=== PATIENT | female | born 1940 | race Caucasian/White ===

== ENCOUNTER 2019-04-28 15:36 | Inpatient (IN) ==
[2019-04-28] MEDS ORDERED: MORPHINE IV ONE (16:30)
[2019-04-28] MEDS ORDERED: ZOFRAN IV ONE (16:30)
[2019-04-28] MEDS ORDERED: TORADOL IV ONE (16:30)
[2019-04-28] MEDS ORDERED: NS 1,000 ML IV ONE (16:30)
--- NOTE | 2019-04-28 17:19 | Diag Imaging Result Doc PS360 ---
EXAM: CT HEAD/C-SPINE W/O CONTRAST - 04/28/2019 HISTORY: head injury/pain TECHNIQUE: CT head/cervical spine without contrast COMPARISON: None. FINDINGS: CT head: There are mild atrophic changes and mild chronic appearing microvascular ischemic changes. There is no indication of recent infarct, although acute infarcts may not be immediately visible. There is no evidence of intracranial hemorrhage, mass effect, or midline shift. There is no evidence of skull fracture. CT cervical spine: There are substantial degenerative changes at atlantoaxial articulation. There are additional cervical spine degenerative changes, which most prominently involves facets on the right. There are degenerative changes with prominent posterior osteophytes and associated mild to moderate spinal stenosis at the thoracic 1-2 level. There is no fracture, subluxation, or precervical soft tissue swelling identified. IMPRESSION: CT head: No visible acute intracranial abnormality. No evidence of intracranial injury. CT cervical spine: Degenerative disease at cervical and visualized upper thoracic spine. Associated mild to moderate spinal stenosis at thoracic 1-2 level. No evidence of fracture or subluxation. This exam was performed using automated exposure control, adjustment of mA or kV according to patient size, and/or use of iterative reconstruction technique. Electronically signed by Andre Coronel 04/28/2019 5:17 PM
--- NOTE | 2019-04-28 17:19 | Diag Imaging Result Doc PS360 ---
EXAM: CT PELVIS W/O CONTRAST INDICATION: left hip fracture TECHNIQUE: This exam was performed using automated exposure control, adjustment of mA or kV according to patient size, and/or use of iterative reconstruction technique. COMPARISON: Conventional CT of the abdomen and pelvis dated 12/06/2012 FINDINGS: There is an acute intertrochanteric fracture involving the left hip with comminution and a few moderately displaced fracture fragments. No other acute fracture is identified involving the pelvis, hips, or sacrum. 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 There are degenerative changes of both hips and at the lower lumbar spine. There is soft tissue edema around the acute left hip fracture. Review of the intrapelvic structures reveals uncomplicated diverticulosis coli. IMPRESSION: 1.Acute intratrochanteric fracture of the left hip. 2.Other incidental/nonacute findings detailed above. Electronically signed by Praveen Garcia 04/28/2019 5:16 PM
--- NOTE | 2019-04-28 17:21 | Diag Imaging Result Doc PS360 ---
EXAM: XRAY PELVIS W/HIP 2-3VW LT - 04/28/2019 HISTORY: fall, injury TECHNIQUE: Left hip and pelvis three views COMPARISON: None. FINDINGS: There is an intertrochanteric fracture of the left femur, with mild varus deformity. There is no other fracture or dislocation identified. There are some osteoarthritic changes at the bilateral hips, most prominent on the left. IMPRESSION: Intertrochanteric fracture of left femur. Electronically signed by Andre Coronel 04/28/2019 5:19 PM
--- NOTE | 2019-04-28 17:52 | Diag Imaging Result Doc PS360 ---
EXAM: CHEST-PORTABLE - 04/28/2019 HISTORY: fall TECHNIQUE: Portable chest COMPARISON: None. FINDINGS: Heart size appears mildly enlarged. There is some tortuosity of the thoracic aorta. There is a possible small nodular density at the medial right base. Lungs otherwise appear clear. There is no pleural effusion or pneumothorax identified. IMPRESSION: Mild cardiomegaly. Possible small nodular density at medial right base. No other evidence of acute disease. Electronically signed by Andre Coronel 04/28/2019 5:50 PM
[2019-04-28 18:08] LABS: BASO# 0.01 X1000 (0.0-0.2); BASO% 0.1 % (0.0-0.8); EOS# 0.02 X1000 (0.0-0.7); EOS% 0.2 % (0.0-10.0); HEMATOCRIT 39.7 % (37.0-47.0); HEMOGLOBIN 13.4 g/dL (12.0-16.0); IMM GRAN# 0.03 X1000 (0.0-0.04); IMM GRAN% 0.2 % (0.0-0.5); LYMPH# 0.63 X1000 (1.2-3.4); LYMPH% 4.8 % (20.5-51.1); MCH 31.4 PG (27-31); MCHC 33.8 g/dL (33-37); MONO# 0.45 X1000 (0.11-0.59); MONO% 3.4 % (1.7-9.3); MPV 11.2 FL (7.4-10.4); NEUT# 11.99 X1000 (1.4-6.5); NEUT% 91.3 % (42.2-75.2); PLT 170 X1000 (130-400); RBC 4.27 XMIL (4.2-5.4); RDW 13.5 % (11.5-14.5); WBC 13.13 X1000 (4.8-10.8)
[2019-04-28 18:11] LABS: INR 0.91
[2019-04-28 18:12] LABS: PTT 24.4 Seconds (22.3-41.8)
--- NOTE | 2019-04-28 18:40 | PROVIDER DOCUMENTATION ---
This chart was entered by Tabatha Garcia Scribe, acting as scribe for Cosme Newton MD. 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 pt lives at [facility]. pt pcp is Dr. Suazo. pt has hx of dementia (per ems), htn and high cholesterol(has rx with her). pt arrived via [facility]. denies loc and any other injuries. Review of Systems - Adult - REVIEW OF SYSTEMS - ADULT Constitutional: reports: no symptoms reported Eyes: reports: no symptoms reported Ears, Nose, Mouth & Throat: reports: no symptoms reported Cardiovascular: reports: no symptoms reported Respiratory: reports: no symptoms reported Gastrointestinal: reports: no symptoms reported Genitourinary: reports: no symptoms reported Musculoskeletal: reports: see HPI, joint pain (left hip). denies: back pain, muscle aches, neck pain Integumentary: reports: no symptoms reported Neurological: reports: no symptoms reported Psychiatric: reports: no symptoms reported Endocrine: reports: no symptoms reported Hematologic/Lymphatic: reports: no symptoms reported Allergic/Immunologic: reports: no symptoms reported All Other Systems: Reviewed and Negative Past History - Adult - PAST MEDICAL HISTORY-ADULT Review of Records: reports: Old Records Reviewed, Nursing Assessment Review, Medications Reviewed, Social history reviewed & non-contributory. Major Childhood Illnesses: reports: denies history Cardiovascular: reports: HTN, hyperlipidemia Respiratory: reports: denies history Gastrointestinal: reports: denies history Obstetrical/Gynecological: reports: denies history Genitourinary: reports: denies history Musculoskeletal: reports: denies history Neurological: reports: dementia Endocrine/Immune: reports: denies history Other Conditions: reports: denies history - IMMUNIZATION STATUS Childhood Immunizations: See Nurse Assessment Flu Vaccine: See Nurse Assessment - FAMILY HISTORY Family History: reviewed, not pertinent Physical Exam-Injury Related - Physical Exam-Injury Related Initial Vital Signs Reviewed: Yes General Appearance: appears well, alert, no apparent distress, thin. negative: cachetic, obese, lethargic Eyes: PERRL/EOMI, pink conjunctivae Head, Ears, Nose, Mouth & Throat: normocephalic/atraumatic, moist mucous membranes, normal ENT inspection Neck: non-tender, full range of motion, supple, normal inspection Respiratory: chest non-tender, lungs clear, normal breath sounds Cardiovascular: normal peripheral pulses, regular rate, rhythm Chest/Breast: deferred Peripheral Pulses: radial (R): 2+, radial (L): 2+ Abdominal Exam: normal bowel sounds, non tender, soft Female Genitalia/Pelvic Exam: deferred Back Exam: normal inspection, no CVA tenderness, no vertebral tenderness. negative: CVA tenderness, decreased range of motion, vertebral tenderness Extremity: normal range of motion, non-tender, no pedal edema, no calf tenderness, normal capillary refill. negative: normal inspection (pt is shortened and externally rotated in left hip) Integumentary: normal color, warm/dry, other (pt has post op surgical changes of left episcopal) Neurologic: grossly normal, no motor/sensory deficits Psych/Mental Status: normal mood/affect, normal thought content, normal thought process, oriented x 3 - Glascow Coma Score Best Eye Response ([place]): (4) open spontaneously Best Verbal Response ([place]): (4) confused conversation (pt has baseline dementia) Best Motor Response ([place]): (6) obeys commands [place] Total: 14 Progress - PLAN OF CARE/RESULTS Progress/Plan/Lab Results: Vital Signs - 8 hr 04/28/19 17:33 Temperature 98.8 F Pulse Rate 76 Respiratory Rate 20 Blood Pressure 192/80 O2 Sat by Pulse Oximetry 98 Laboratory Results - last 24 hr 04/28/19 04/28/19 17:53 17:53 WBC 13.13 H RBC 4.27 Hgb 13.4 Hct 39.7 MCV 93.0 MCH 31.4 H MCHC 33.8 RDW Std Deviation 13.5 Plt Count 170 MPV 11.2 H Immature Gran % (Auto) 0.2 Neut % (Auto) 91.3 H Lymph % (Auto) 4.8 L [place] % (Auto) 3.4 Eos % (Auto) 0.2 Baso % (Auto) 0.1 Immature Gran # (Auto) 0.03 Neut # (Auto) 11.99 H Lymph # (Auto) 0.63 L [place] # (Auto) 0.45 Eos # (Auto) 0.02 Baso # (Auto) 0.01 PT 13.0 INR 0.91 PTT (Actin FS) 24.4 Orders Category Date Time Status [place] Cath Insertion ORDERED Care 04/28/19 16:28 Active Nursing- Obtain EKG once Care 04/28/19 16:28 Active [place] Loc NOW Care 04/28/19 16:28 Active CHEST-PORTABLE [RAD] Stat Exams 04/28/19 16:[address] HEAD/C-SPINE W/O CONTRAST [CT] Stat Exams 04/28/19 16:[address] PELVIS W/O CONTRAST [CT] Stat Exams 04/28/19 16:29 Completed XRAY PELVIS W/HIP 2-3VW LT [RAD] Stat Exams 04/28/19 16:29 Completed CBC WITH ELECTRONIC DIFF [HEME] Stat Lab 04/28/19 17:53 Completed CK PROFILE [SP CHEM] Stat Lab 04/28/19 17:56 Received COMPREHENSIVE METABOLIC PANEL [CHEM] Stat Lab 04/28/19 17:56 Received LIPASE [CHEM] Stat Lab 04/28/19 17:56 Received MAGNESIUM [CHEM] Stat Lab 04/28/19 17:56 Received PRO B-NATRIURETIC PEPTIDE Stat Lab 04/28/19 17:53 Received PROTIME WITH INR [COAG] Stat Lab 04/28/19 17:53 Completed PTT [COAG] Stat Lab 04/28/19 17:53 Completed TROPONIN T Stat Lab 04/28/19 17:53 Received TYPE & SCREEN [BBK] Stat Lab 04/28/19 16:29 Uncollected URINALYSIS W/POSS RFLX CULT [URINALYSIS] Stat Lab 04/28/19 16:29 Uncollected 0.9% Sodium Chloride Inj [Ns] 1,000 ml Med 04/28/19 16:30 Active IV 125 mls/hr Ketorolac [Toradol] Med 04/28/19 16:30 Discontinued 15 mg IV NOW ONE Morphine Med 04/28/19 16:30 Discontinued 2 mg IV NOW ONE Ondansetron [Zofran] Med 04/28/19 16:30 Discontinued 4 mg IV NOW ONE EKG [EKG] Stat Ther 04/28/19 16:28 Ordered Result Diagrams: 04/28/19 17:53 - REASSESSMENT Reassessment #1 Time Reassessed: 18:39 Status: improving (after pain meds) - XRAY 1 XRAY: Left XRAY Study: Hip Impression: Abnormal ( EXAM: XRAY PELVIS W/HIP 2-3VW LT - 04/28/2019 HISTORY: fall, injury TECHNIQUE: Left hip and pelvis three views COMPARISON: None. FINDINGS: There is an intertrochanteric fracture of the left femur, with mild varus deformity. There is no other fracture or dislocation identified. There are some osteoarthritic changes at the bilateral hips, most prominent on the left. IMPRESSION: Intertrochanteric fracture of left femur. Electronically signed by [employer] 04/28/2019 5:19 PM 04/28/19 1719 Interpreting Physician: Andre Coronel MD Dictated Date/Time: 04/28/19 1718 cc: Cosme Newton MD;), See EMR Report 2 XRAY Study: Chest Impression: Abnormal (EXAM: CHEST-PORTABLE - 04/28/2019 HISTORY: fall TECHNIQUE: Portable chest COMPARISON: None. FINDINGS: Heart size appears mildly enlarged. There is some tortuosity of the thoracic aorta. There is a possible small nodular density at the medial right base. Lungs otherwise appear clear. There is no pleural effusion or pneumothorax identified. IMPRESSION: Mild cardiomegaly. Possible small nodular density at medial right base. No other evidence of acute disease. Electronically signed by [employer] 04/28/2019 5:50 PM 04/28/19 1750 Interpreting Physician: Andre Coronel MD Dictated Date/Time: 04/28/19 1747 cc: Cosme Newton MD;), See EMR Report - CT/MRI 1 CT Study: Head (and c-s) Impression: Abnormal, See EMR Report (HISTORY: head injury/pain TECHNIQUE: CT head/cervical spine without contrast COMPARISON: None. FINDINGS: CT head: There are mild atrophic changes and mild chronic appearing microvascular ischemic changes. There is no indication of recent infarct, although acute infarcts may not be immediately visible. There is no evidence of intracranial hemorrhage, mass effect, or midline shift. There is no evidence of skull fracture. CT cervical spine: There are substantial degenerative changes at atlantoaxial articulation. There are additional cervical spine degenerative changes, which most prominently involves facets on the right. There are degenerative changes with prominent posterior osteophytes and associated mild to moderate spinal stenosis at the thoracic 1-2 level. There is no fracture, subluxation, or precervical soft tissue swelling identified. IMPRESSION: CT head: No visible acute intracranial abnormality. No evidence of intracranial injury. CT cervical spine: Degenerative disease at cervical and visualized upper thoracic spine. Associated mild to moderate spinal stenosis at thoracic 1- 2 level. No evidence of fracture or subluxation. This exam was performed using automated exposure control, adjustment of mA or kV according to patient size, and/or use of iterative reconstruction technique. Electronically signed by Andre Coronel 04/28/2019 5:17 PM 04/28/19 1717 Interpreting Physician: Andre Coronel MD Dictated Date/Time: 04/28/19 1708 cc: Cosme Newton MD;) 2 CT Study: Lower Ext Impression: Abnormal, See EMR Report ( EXAM: CT PELVIS W/O CONTRAST IN DICATION: left hip fracture TECHNIQUE: This exam was performed using automated exposure control, adjustment of mA or kV according to patient size, and/or use of iterative reconstruction technique. COMPARISON: Conventional CT of the abdomen and pelvis dated 12/06/2012 FINDINGS: There is an acute intertrochanteric fracture involving the left hip with comminution and a few moderately displaced fracture fragments. No other acute fracture is identified involving the pelvis, hips, or sacrum. 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 There are degenerative changes of both hips and at the lower lumbar spine. There is soft tissue edema around the acute left hip fracture. Review of the intrapelvic structures reveals uncomplicated diverticulosis coli. IMPRESSION: 1.Acute intratrochanteric fracture of the left hip. 2.Other incidental/nonacute findings detailed above. Electronically signed by Praveen Garcia 04/28/2019 5:16 PM 04/28/19 1716 Interpreting Physician: Praveen Garcia MD Dictated Date/Time: 04/28/19 171 cc: Cosme Newton MD;) - CONSULTS/PCP/HOSPITALIST Notification #1 *Consult/PCP/Hospitalist*: Radiology Time Discussed: 16:44 Reason/Comments: xray left hip Consult Disposition: other #2 Consult: Dr. Samson Time Discussed: 17:12 Consult Disposition: Admit #3 Consult: [place] Time Discussed: 18:37 Consult Disposition: Will see in ED Departure - Departure Date of Disposition Decision: 04/28/19 Time of Disposition Decision: 18:38 DIAGNOSIS: Fracture, intertrochanteric, right femur Qualifiers: Encounter type: initial encounter Fracture type: closed Fracture alignment: displaced Qualified Code(s): S72.141A - Displaced intertrochanteric fracture of right femur, initial encounter for closed fracture Fall as cause of accidental injury at home as place of occurrence Qualifiers: Encounter type: initial encounter Qualified Code(s): W19.XXXA - Unspecified fall, initial encounter; Y92.009 - Unspecified place in unspecified non- institutional (private) residence as the place of occurrence of the external cause Dementia Qualifiers: Dementia type: Alzheimer's disease Alzheimer's disease onset: late-onset Dementia behavioral disturbance: without behavioral disturbance Qualified Code(s): G30.1 - Alzheimer's disease with late onset; F02.80 - Dementia in other diseases classified elsewhere without behavioral disturbance Disposition: ADMITTED INPATIENT 09 Certified Medical Emergency: Emergent Condition: Stable - Critical Care Note This patient required my direct & personal management of CC.: No Attestation - Physician/ ALEJANDRA Attestation Patient care was provided by Advanced Practice Provider:: No The physician spent face to face time with patient:: Yes Advanced Practice Provider documentation review:: Supervising physician onsite and consulted in the evaluation and care of this patient. The physician did have a face to face encounter with the patient. This chart was documented by the indicated scribe, (Tabatha Garcia Scribe) and accurately reflects the services I performed and decisions made by me, Cosme Newton MD, as attested by the provider's signature.
[2019-04-28 18:43] LABS: AGAP 15; ALB/GLOB RATIO 2.1; ALBUMIN 4.5 g/dL (3.5-5.0); ALKALINE PHOSPHATASE 95 U/L (32-104); BUN 14 mg/dL (8-22); CALCIUM 8.9 mg/dL (8.8-10.2); CHLORIDE 99 mmol/L (98-107); COSMO 280; CREATININE 0.7 mg/dL (0.5-0.9); ESTIMATED GFR > 60; GLUCOSE 127 mg/dL (70-104); GOT 42 U/L (10-30); GPT 37 U/L (10-36); LIPASE 29 U/L (13-60); MAGNESIUM 2.1 mg/dL (1.5-2.7); POTASSIUM 3.5 mmol/L (3.5-5.1); SODIUM 139 mmol/L (136-145); TCO2 25 mmol/L (25-35); TOTAL BILIRUBIN 0.78 mg/dL (0.20-1.00); TOTAL PROTEIN 6.6 g/dL (6.3-8.3)
[2019-04-28 18:45] LABS: URINE SOURCE CATH
[2019-04-28 18:48] LABS: CK PROFILE 360 U/L (24-173)
[2019-04-28 18:53] LABS: BILIRUBIN URINE NEGATIVE (NEGATIVE); BLOOD URINE NEGATIVE (NEGATIVE); COLOR YELLOW; GLUCOSE URINE NEGATIVE (NEGATIVE); KETONE URINE TRACE mg/dL (NEGATIVE); LEUKOCYTES URINE NEGATIVE (NEGATIVE); NITRITE URINE NEGATIVE (NEGATIVE); PH URINE 8.5; PROTEIN URINE NEGATIVE (NEGATIVE); SP GRAVITY URINE 1.013; TURBIDITY URINE CLEAR (CLEAR); UROBILINOGEN URINE NORMAL (NORMAL)
[2019-04-28 18:54] LABS: UR EPITHELIAL CELLS <10 /HPF (<10); URINE BACTERIA NEGATIVE /HPF; URINE RBC <10 /HPF (<10); URINE WBC <10 /HPF (<10)
[2019-04-28 19:04] LABS: CK INDEX 1.8 (0.0-2.5); CK-MB 6.63 ng/mL (0.0-5.0)
--- NOTE | 2019-04-28 20:32 | HISTORY AND PHYSICAL ---
CHIEF COMPLAINT: Hip pain. HISTORY OF PRESENT ILLNESS: This is a 79-year-old female, severely demented, who lives in assisted living. Apparently, she fell at the assisted living and was unable to walk subsequently and came in for evaluation. She was found to have, I believe, intertrochanteric hip fracture. Dr. Samson has been consulted and recommended admission for treatment. Anticipate surgery tomorrow. PAST MEDICAL HISTORY: Per family is really just dementia. Also looks like she may have some GERD and dyslipidemia but no cardiac disease. [*]. PAST SURGICAL HISTORY: She has had a cholecystectomy. She has had a hysterectomy but no major orthopedic procedure. She has had hip fractures in the past. FAMILY HISTORY: Was reviewed. I could not get specific information from that standpoint. SOCIAL HISTORY: No tobacco or ethanol. She lives in an assisted living, presumably in a memory unit. ALLERGIES: To sulfa. MEDICATION LIST: She takes atorvastatin 40, Aricept 10, memantine 28, Prilosec 40, sertraline 50, verapamil 240. REVIEW OF SYSTEMS: Otherwise negative times a 10-point review of systems. PHYSICAL EXAMINATION: VITAL SIGNS: Blood pressure 192/80, heart rate of 76, respiratory rate of 20, temperature 98.8 degrees. EYE EXAM: Pupils equal, round, reactive to light. Extraocular movements were intact. EARS, NOSE, AND THROAT EXAM: She had moist mucous membranes. NECK EXAM: Supple. CARDIOVASCULAR: Regular rate and rhythm. PULMONARY: Bilateral breath sounds clear to auscultation. GASTROINTESTINAL: Soft, nontender, nondistended. Bowel sounds are positive. EXTREMITIES: Her left leg is somewhat foreshortened. NEUROLOGICAL: Otherwise unremarkable. LABORATORY DATA: As described. ASSESSMENT: This is a 79-year-old white female with dementia, possibly some hypertension, dyslipidemia who presents with a left hip fracture. 1. Left hip fracture. We will continue treatment, which will be surgical treatment. Orthopedics is consulted. We will continue pain control. I do not think there are any concerns at this point prior to surgery. 2. Hypertension. Continue regular medications. 3. Dyslipidemia. We will continue regular medications. 4. Dementia. We will need to be careful with her medications and seeing how she does long-term with this. Anticipate rehab at discharge. cc: MD Jamaal Mesa, DO
[2019-04-28] MEDS ORDERED: ZOFRAN IV PRN (20:39)
[2019-04-28] MEDS: MORPHINE IV PRN (22:03)
[2019-04-29] MEDS: MORPHINE IV PRN (05:43)
[2019-04-29] MEDS ORDERED: LOVENOX SUBQ SCH (06:00)
[2019-04-29 06:28] LABS: AGAP 10; BUN 15 mg/dL (8-22); CALCIUM 9.1 mg/dL (8.8-10.2); CHLORIDE 99 mmol/L (98-107); COSMO 273; CREATININE 0.7 mg/dL (0.5-0.9); ESTIMATED GFR > 60; GLUCOSE 110 mg/dL (70-104); MAGNESIUM 2.1 mg/dL (1.5-2.7); POTASSIUM 4.3 mmol/L (3.5-5.1); SODIUM 136 mmol/L (136-145); TCO2 27 mmol/L (25-35)
[2019-04-29 06:33] LABS: EOS# 0.01 X1000 (0.0-0.7); EOS% 0.1 % (0.0-10.0); HEMATOCRIT 37.3 % (37.0-47.0); HEMOGLOBIN 12.4 g/dL (12.0-16.0); LYMPH# 0.74 X1000 (1.2-3.4); LYMPH% 7.9 % (20.5-51.1); MCH 31.2 PG (27-31); MCHC 33.2 g/dL (33-37); MCV 93.7 FL (81-99); MONO% 4.3 % (1.7-9.3); MPV 10.8 FL (7.4-10.4); NEUT# 8.19 X1000 (1.4-6.5); NEUT% 87.7 % (42.2-75.2); PLT 140 X1000 (130-400); RBC 3.98 XMIL (4.2-5.4); RDW 13.7 % (11.5-14.5); WBC 9.34 X1000 (4.8-10.8)
[2019-04-29 07:31] LABS: LYMPHS 8 % (21-51); SEGS 92 % (42-75)
--- NOTE | 2019-04-29 08:48 | ORTHOPAEDICS CONSULTATION ---
DATE: 04/29/2019 PRIMARY CARE PHYSICIAN: Dr. Jamaal Suazo. CHIEF COMPLAINT: Left hip pain after fall. HISTORY OF PRESENT ILLNESS: Ms. Handley is a 79-year-old female with severe dementia, who lives in an assisted living facility. Apparently, at the assisted living some time yesterday she had a fall. Afterward, she was unable to walk. There was not a good timeline of events as the patient does have some confusion. She is not sure when she fell, but does recall a fall. When she was apparently at the assisted living, she was not able to walk,so they brought her in to [facility] for [facility] evaluation. At the time, she was found to have a left intertrochanteric hip fracture. Orthopedics has been consulted for further evaluation and treatment. PAST MEDICAL HISTORY: 1. The patient is not a good historian. Per the chart, she has dementia. 2. Gastroesophageal reflux disease. 3. Dyslipidemia. PAST SURGICAL HISTORY: 1. Cholecystectomy. 2. Hysterectomy. FAMILY HISTORY: Noncontributory. SOCIAL HISTORY: No tobacco, alcohol or illicit drug use. She does live in assisted living. ALLERGIES: Sulfa. MEDICATION LIST: 1. Atorvastatin 40 mg p.o. daily. 2. Aricept 10 mg p.o. daily. 3. Prilosec 40 mg p.o. daily. 4. Verapamil 240 mg daily. REVIEW OF SYSTEMS: A 10 point review of system was completed and negative, except what is mentioned above in the HPI. PHYSICAL EXAMINATION: Current Vital Signs: Temperature is 98.4 degrees, pulse 69, respirations 15, blood pressure 169/70. She is 99% on room air. General: Ms. Handley is a pleasant 79-year-old female in no acute distress. Neurological: She is oriented to person and she does know she is in the hospital, although she was unable to tell me which hospital. She was not sure of the month or year. HEENT: Head is atraumatic, normocephalic. Pupils are equal, round, reactive to light. Cardiovascular: Regular rate and rhythm. Pulmonary: Breathing is even and unlabored. Gastrointestinal: Appears nondistended. Extremities: The left lower extremity is shortened and externally rotated. She does have tenderness to palpation at the hip. She does have pain with any passive or active motion. She is able to dorsi and plantar flex the foot. She has good sensation. She has a 2+ pedal pulse. There are no skin ulcerations or abrasions. IMAGING: A pelvis x-ray does show a left intertrochanteric fracture of the left femur. ASSESSMENT: Left intertrochanteric femur fracture. PLAN: It does not look like Ms. Handley is on any blood thinners or there is any medical issue to delay surgery. So, we will plan on doing a trochanteric femoral nailing today. I have talked to the patient some, but she does have a history of dementia. Dr. Samson will talk to the family. We got a number for them. We will get consent signed and plan to do this today. We will talk with the medical team, and make sure she is good to go today, but from what I can tell it looks like she is. Dictated by LAUREN Palmer for Lam Samson MD cc: LAUREN Palmer MD
[2019-04-29] MEDS ORDERED: ISOPTIN SR PO SCH ×2 (09:00→21:00)
[2019-04-29] MEDS ORDERED: NAMENDA XR PO SCH ×2 (09:00→21:00)
[2019-04-29] MEDS ORDERED: LIPITOR PO SCH ×2 (09:00→21:00)
[2019-04-29] MEDS ORDERED: PRILOSEC PO SCH ×2 (09:00→21:00)
[2019-04-29] MEDS ORDERED: ZOLOFT PO SCH ×2 (09:00→21:00)
[2019-04-29] MEDS ORDERED: ARICEPT PO SCH ×2 (09:00→21:00)
--- NOTE | 2019-04-29 09:38 | ORTHOPAEDICS PROGRESS NOTE ---
DATE: 04/29/2019 ADDENDUM TO NOTE OF NNEKA DONAHUE: Ms. Handley is a 79-year-old female who presented with a hip fracture. She was admitted per the hospitalist service. She was clear for surgical intervention per the hospitalist service. She has a baseline dementia and her son, Jagdeep Handley is medical power of workers compensation attorney. I spoke with him this morning concerning the consent for surgery for his mother. I went over with him the procedure, risks, benefits, potential complications. Risks include, but are not limited to infection, wound healing problems, damage to nerves, arteries, veins, numbness, malunion, nonunion, hardware related issues, continued pain, DVT, and anesthesia related risks. After discussing these with Jagdeep Handley, the Medical Power of Recycling Crew Supervisor for Ms Ana Handley he expressed understanding wished for her to proceed with surgery. This will be a left trochanteric femoral nailing. She is n.p.o. now and she will go to surgery today around noon. cc: Lam Samson MD
[2019-04-29] MEDS ORDERED: XYLOCAINE-MPF 2% ONE (11:25)
[2019-04-29] MEDS ORDERED: DIPRIVAN 1% ONE (11:36)
[2019-04-29] MEDS ORDERED: KEFZOL 1 GM/D5W 1 GM/50 ML IVPB ONE (11:37)
[2019-04-29] MEDS ORDERED: SALINE LOCK IV FLUID XX ONE (12:28)
[2019-04-29] MEDS ORDERED: CALMOSEPTINE OINTMENT TOP PRN (16:08)
--- NOTE | 2019-04-29 17:33 | PROGRESS NOTE ---
DATE: 04/29/2019 SUBJECTIVE: The patient is resting comfortably in bed. No acute events noted overnight. OBJECTIVE: Vital Signs: Temperature 97.6 degrees, blood pressure 114/56, heart rate 79, respirations 18. General: This is a chronically ill-appearing elderly female lying in bed in no acute distress. Heart: S1, S2 normal. Regular rate and rhythm. Lungs: Equal air entry bilaterally. No crackles. No rales. Abdomen: Positive bowel sounds. Soft, nontender, nondistended. Extremities: No edema, no cyanosis. Neurologic: The patient is alert and oriented x3. LABS: Sodium 136, potassium 4.3, chloride 99. CO2 is 27, BUN 15, magnesium 2.1. White blood cell count 9.3. ASSESSMENT AND PLAN: 1. Intertrochanteric fracture of the left hip. The patient is scheduled for surgery today. 2. Leukocytosis. Resolved. 3. Dementia. Continue on Namenda and Aricept. 4. Deep vein thrombosis prophylaxis. The patient is on Lovenox. cc: Elizabeth Martin MD
--- NOTE | 2019-04-29 17:43 | OPERATIVE NOTE ---
PROCEDURE DATE: 04/29/2019 PREOPERATIVE DIAGNOSIS: Left intertrochanteric hip fracture. POSTOPERATIVE DIAGNOSIS: Left intertrochanteric hip fracture. PROCEDURE PERFORMED: Left trochanteric femoral nailing. SURGEON: Lam Samson MD SANDWICH COUNTER ATTENDANT: LAUREN Palmer, who was an integral part of the case helping with all aspects of the case, helping to increase our OR efficiency greatly. ANESTHESIA: General with LMA. ESTIMATED BLOOD LOSS: 100 mL. IMPLANTS: Synthes 11 x 360 trochanteric femoral nail. DISPOSITION: To PACU hemodynamically stable. INDICATIONS FOR PROCEDURE: Ms. Handley is a 79-year-old demented female who presented with a hip fracture. She was admitted per the hospitalist service. I discussed with her and her medical power of insurance attorney, who was her son, about operative intervention. He expressed understanding and signed consent on her behalf. DESCRIPTION OF THE PROCEDURE: Ms. Handley was identified in the preoperative holding area. Left hip was marked as correct surgical site. She was then wheeled to the operating room, kept supine on her own bed. She was induced under general anesthesia. LMA was placed. She was then moved to the traction bed. Both feet were placed in the traction boots. A little bit of traction was pulled across the left lower extremity. Left lower extremity was then prepped with chlorhexidine, gluconate scrub, and then ChloraPrep, and draped in a normal sterile fashion. Surgical pause was performed. We identified the correct patient, correct side, and the correct procedure. Preop antibiotics were given. I started with a small incision just proximal to the greater trochanter. Dissection was carried down. I got my guidewire in position. AP and lateral views looked good. We then drilled that opening with opening drill bit. I got my guidewire down, sequentially reamed up to a size 12 reamer and then passed an 11 x 360 nail down. Fracture remained well reduced the entire time. I then placed an 85 mm helical blade and then locked that into the nail. We then removed the outrigger guide. X-rays proximally were taken, which showed that we had really good position of our fracture site, but the AP and lateral views looked good. I went distally and placed 1 interlocking screw to keep rotation. AP and lateral views distally looked good as well. We then closed everything in a layered fashion with 0 Vicryl for the deep layer, 2-0 Vicryl for the subcutaneous, and gloria on the skin. Adaptic, 4 x 4's, and island dressings were applied. She was then awakened from general anesthesia, moved to her own bed, and taken to the PACU in stable condition. PLAN: Postoperatively, she will be weightbearing as tolerated to the left lower extremity. Physical therapy will start working with her tomorrow, and social media project manager will be on board for discharge planning. cc: Lam Samson MD MTDD
[2019-04-29] MEDS: OXY IR PO PRN (17:56)
[2019-04-29] MEDS: TYLENOL PO SCH (17:57)
[2019-04-29] MEDS: PERIDEX MT SCH (20:22)
[2019-04-30] MEDS: TYLENOL PO SCH ×4 (02:36→16:44)
[2019-04-30] MEDS: OXY IR PO PRN ×2 (02:36→22:58)
[2019-04-30 06:30] LABS: AGAP 9; BUN 20 mg/dL (8-22); CALCIUM 8.2 mg/dL (8.8-10.2); CHLORIDE 93 mmol/L (98-107); COSMO 261; CREATININE 0.8 mg/dL (0.5-0.9); ESTIMATED GFR > 60; GLUCOSE 126 mg/dL (70-104); POTASSIUM 3.6 mmol/L (3.5-5.1); SODIUM 128 mmol/L (136-145); TCO2 26 mmol/L (25-35)
[2019-04-30 07:56] LABS: HEMOGLOBIN 9.2 g/dL (12.0-16.0)
--- NOTE | 2019-04-30 10:39 | ORTHOPAEDICS PROGRESS NOTE ---
DATE: 04/30/2019 SUBJECTIVE DATA: Ms. Handley is laying in bed. She is pretty confused this morning. She is pleasant, but she is a little bit agitated and has pulled all of her dressings off and pulled her IVs out. OBJECTIVE: Left lower extremity exam: Her incisions look good, no erythema or drainage. They are all well approximated. She is able to do a straight leg raise and dorsi and plantar flex that foot. She has good sensation to the foot. She has a 2+ pedal pulse. ASSESSMENT: Status post left trochanteric femoral nailing. PLAN: I think with Ms. Handley dementia we will definitely plan on her doing a rehab stay. She is going to work with physical therapy today to work on getting mobilized. She can be full weightbearing on this left lower extremity. I would love for her to be up in the chair for all meals and this may be difficult with her dementia. As long she is tolerating fluids, I am okay with her not having an IV, but that will be up to the primary team. If there are any questions or concerns, please call the office. Dictated by LAUREN Palmer for Lam Samson MD cc: LAUREN Palmer MD [facility]
[2019-04-30] MEDS: LACTULOSE PO SCH (10:55)
[2019-04-30] MEDS: ISOPTIN SR PO SCH (10:56)
[2019-04-30] MEDS: PRILOSEC PO SCH (10:56)
[2019-04-30] MEDS: LIPITOR PO SCH (10:57)
[2019-04-30] MEDS: ARICEPT PO SCH (10:57)
[2019-04-30] MEDS: ZOLOFT PO SCH (10:57)
[2019-04-30] MEDS: MIRALAX PO SCH (10:57)
[2019-04-30] MEDS: LOVENOX SUBQ SCH (10:57)
[2019-04-30] MEDS: PERIDEX MT SCH (10:58)
[2019-04-30] MEDS: NAMENDA XR PO SCH (10:58)
[2019-05-01] MEDS: LACTULOSE PO SCH ×2 (00:55→09:18)
[2019-05-01] MEDS: TYLENOL PO SCH ×2 (00:56→09:46)
[2019-05-01] MEDS: PERIDEX MT SCH ×2 (00:56→09:18)
--- NOTE | 2019-05-01 03:53 | PROGRESS NOTE ---
DATE: 04/30/2019 SUBJECTIVE: The patient is resting comfortably in bed. She is pleasantly confused. OBJECTIVE: Vital Signs: Temperature 98.5 degrees, blood pressure 113/51, heart rate 76, respirations 16, O2 saturations 100% on room air. General: This is an elderly female lying in bed in no acute distress. Heart: S1, S2 normal. Regular rate and rhythm. Lungs: Clear to auscultation bilaterally. Abdomen: Positive bowel sounds. Soft, nontender, nondistended. Extremities: No edema. No cyanosis. Neurologic: The patient is awake, but confused. ASSESSMENT AND PLAN: 1. Status post left trochanteric femoral nailing. We will continue with physical therapy. Management as per the orthopedic surgeon. 2. Hyponatremia. Monitor closely. 3. Dementia. Aware. 4. Deep venous thrombosis prophylaxis. Continue on Lovenox. 5. Disposition. Wire Drawing Machine Operator is working on inpatient rehab placement for the patient. cc: Elizabeth Martin MD
[2019-05-01 06:07] LABS: HEMATOCRIT 27.1 % (37.0-47.0)
[2019-05-01 06:20] LABS: AGAP 10; BUN 18 mg/dL (8-22); CALCIUM 8.5 mg/dL (8.8-10.2); CHLORIDE 97 mmol/L (98-107); COSMO 267; CREATININE 0.7 mg/dL (0.5-0.9); ESTIMATED GFR > 60; GLUCOSE 104 mg/dL (70-104); POTASSIUM 3.1 mmol/L (3.5-5.1); SODIUM 132 mmol/L (136-145); TCO2 25 mmol/L (25-35)
[2019-05-01] MEDS ORDERED: POTASSIUM CHLORIDE 20% LIQUID PO ONE (09:10)
[2019-05-01] MEDS: NAMENDA XR PO SCH (09:16)
[2019-05-01] MEDS: ISOPTIN SR PO SCH (09:17)
[2019-05-01] MEDS: ZOLOFT PO SCH (09:17)
[2019-05-01] MEDS: ARICEPT PO SCH (09:17)
[2019-05-01] MEDS: LIPITOR PO SCH (09:17)
[2019-05-01] MEDS: PRILOSEC PO SCH (09:17)
[2019-05-01] MEDS: LOVENOX SUBQ SCH (09:18)
[2019-05-01] MEDS: MIRALAX PO SCH (09:18)
--- NOTE | 2019-05-01 14:29 | DISCHARGE SUMMARY ---
ADMISSION DATE: 04/28/2019 DISCHARGE DATE: 05/01/2019 FINAL DISCHARGE DIAGNOSES: 1. Status post left trochanteric femoral nailing. 2. Hyponatremia. 3. Dementia. 4. Hypokalemia. 5. Constipation. CONSULTATIONS: Orthopedic consultation with Dr. Lam Samson. PROCEDURES: Left trochanteric femoral nailing. HOSPITAL COURSE: Ms. Hadnley is a 79-year-old female with a history of hypertension and dementia who presented to the ER after suffering a fall. On admission, the patient was noted to have a left intertrochanteric hip fracture. The patient was admitted to the hospitalist service and Orthopedic Surgery was consulted. The patient was taken to the OR on 04/29 at which time a left trochanteric femoral nailing was performed. The patient did well postoperatively. She was seen by physical therapy and given her dementia, it was recommended that the patient be sent for inpatient rehabilitation. Dominatrix was consulted, and ultimately the patient was noted to be stable enough for transfer to a rehabilitation center in [place]. DISCHARGE MEDICATIONS: 1. MiraLAX 17 g oral daily. 2. Oxy IR 5 mg oral every 6 hours p.r.n. 3. Lovenox 40 mg subcutaneous every 24 hours. 4. Colace 100 mg p.o. twice a day. 5. Aricept 10 mg p.o. at bedtime. 6. Namenda 28 mg oral at bedtime. 7. Verapamil 240 mg oral at bedtime. 8. Lipitor 40 mg p.o. at bedtime. 9. Omeprazole 40 mg p.o. at bedtime. 10. Acyclovir 800 mg oral at bedtime. 11. Zoloft 50 mg p.o. at bedtime. DISCHARGE DIET: Low-sodium diet. ACTIVITY: As tolerated. FOLLOWUP INSTRUCTIONS: The patient will need to follow up with Dr. Samson within 1 to 2 weeks as scheduled by his clinic. cc: Elizabeth Martin MD
[2019-05-01 14:53] VITALS: BP 104/47
[2019-05-01] MEDS: OXY IR PO PRN (15:03)
--- NOTE | 2019-05-01 20:30 | ORTHOPAEDICS PROGRESS NOTE ---
DATE: 05/01/2019 SUBJECTIVE DATA: Ms. Handley is lying in bed. She is still a little confused but much calmer this morning. She did pull her [place] out last night. OBJECTIVE: Left lower extremity exam: Her incisions look good, no erythema or drainage. They are well approximated. She is able to do a straight leg raise and move that leg around pretty good bit. She can dorsi and plantar flex the foot. She has good sensation of 2+ pedal pulse. ASSESSMENT: Status post left trochanteric femoral nailing. PLAN: Ms. Handley was able to work with physical therapy some yesterday and they said she did pretty good. She was able to put full weight on that side with a walker and assistance. We are good with her being discharged to a rehab facility at any time. From orthopedic standpoint, she will be full weightbearing to this left lower extremity. We would like to see her back in clinic with Dr. Samson in 2 weeks after discharge from the hospital. If her stay is longer than 2 weeks before she can come to the office, get her sutures out at about 14 days. If not, we will get them out in the office when she comes to see us. Dictated by LAUREN Palmer for Lam Samson MD cc: LAUREN Palmer MD
== END 2019-05-01 15:11 | DRG 481 ==
LOC: ED 15:36 → SUATTDRO 20:19 → 4N 20:19
PROVIDERS: ATTEND Internal Medicine
CPT/HCPCS: 70450; 71010; 71045; 72125; 72192; 73502; 76000; 80048; 80053; 81001; 82550; 82553; 83690; 83735; 83880; 84134; 84295; 84443; 84484; 85014; 85018; 85025; 85610; 85730; 86850; 86900; 86901; 93005; 94761; 94799; 97110; 97116; 97162; 97530; A9270; J0690; J1650; J1885; J2270; J2405; J7030